=== PATIENT | male | born 1940 | race Caucasian/White ===

== ENCOUNTER 2016-11-18 13:58 | Inpatient (IN) | payer MEDICARE ==
[~2016-11-18] VITALS: Ht 177.8 cm; Wt 90.7 kg
[~2016-11-18 13:58] MED LIST: 0.9% Sodium Chloride 1,000 ML IV SCH; ASPI-973 PO; CLOP75TA28 PO; HYDR25TA4 PO; LOSA50TA37 PO; METO25TA99 PO; Methohexital 10 mg/mL 50 mL Inj IV ONE; POTA10TA7 PO; SIMV10TA4 PO
[2016-11-18 13:59] VITALS: BP 160/85; PULSE 80; RESP 16; O2SAT 97
--- NOTE | 2016-11-18 14:24 | DRSVH ---
PROCEDURE: X-RAY CHEST ONE VIEW, PORTABLE ([id number]) INDICATIONS: chest pain TECHNIQUE: One view of the chest was acquired. COMPARISON: 03/22/2016 FINDINGS: Surgical changes and devices: None. Lungs and pleura: There is bibasilar atelectasis and chronically elevated right hemidiaphragm. No pne umothorax. Superimposition of bowel over the liver. Mediastinum: Mediastinal contours appear normal. Heart size is normal. Bones and chest wall: No suspicious bony lesions. 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 Overlying soft tissues appear unremarkable. IMPRESSION: 1. Bilateral lower lobe atelectasis or scarring. Appearance is unchanged from last exam however possi bility of superimposed pneumonia or embolic disease cannot be excluded. Dictated by: Dk Herrera M.D. on 11/18/2016 at 14:19 Approved by: Dk Herrera M.D. on 11/18/2016 at 14:22
[2016-11-18 14:29] LABS: BASOPHILS % (AUTO) 0.3 % (0-3); EOSINOPHILS % (AUTO) 3.9 % (0-5); Mean Corpuscular Hemoglobin 29.6 pg (27.0-35.0); Mean Corpuscular Volume 87.3 fL (81-100); NEUTROPHILS % (AUTO) 69.2 % (40-74); Platelet Count 174 bil/L (150-400)
[2016-11-18 15:01] LABS: TROPONIN T < 0.010 ug/L (0.0-0.011)
--- NOTE | 2016-11-18 15:08 | ED.REPORT ---
HPI-Chest Pain 40 and Over Date of Service Nov 18, 2016 ED Provider: Elijah Garcia MD Pt is a 76 year old male with a history of cardiac stents (2x), DM, and HTN who presents to the ED complaining of intermmittent left arm pain onset 1 week ago. He c/o associated left shoulder pain. He denies chest pain. The pt reports that he was discharged at 12:00 today from [facility] for similar symptoms. Per pt, his pain started today rating at a 5/10 and he took 2 nitro with relief. His PCP, Dr. Roland, referred him to come to the ED. The pt reports that his symptoms feel similar to when he has previously had cardiac stents. Nursing Notes Stated Complaint: HEART AND LT ARM PAIN Chief Complaint: Chest Pain Nursing Notes Reviewed: Yes (YingYang not reconciled) Allergies: Coded Allergies: Penicillins (Verified Allergy, Severe, HIVES, 11/18/16) Sulfa (Sulfonamide Antibiotics) (Verified Allergy, Mild, Rash,Itching,, ) Scheduled Aspirin (Aspirin) 81 Mg Tablet 81 MG PO DAILY Clopidogrel (Clopidogrel) 75 Mg Tablet 75 MG PO DAILY Hydrochlorothiazide (Hydrochlorothiazide) 25 Mg Tablet 25 MG PO DAILY Losartan Potassium (Losartan Potassium) 50 Mg Tablet 50 MG PO DAILY Metoprolol Succinate ER (Metoprolol Succinate ER) 25 Mg Tab.er.24h 25 MG PO DAILY Potassium Chloride ER (Klor-Con 10) 10 Meq Tablet 10 MEQ PO BID Simvastatin (Simvastatin) 10 Mg Tablet 10 MG PO HS General Time Seen by MD: 15:04 Chief Complaint Other (Left arm pain) Hx Obtained From: Patient Arrived By: Walk-in Sudden in Onset?: No Quality: Painful Severity: Current: Moderate Severity: Maximum: Moderate Recent Healthcare: Recent doctor visit Similar Sx Previous: Yes Past Medical History Past Medical History Notes: Gyn Dr. Roland Past Medical History CPAP History of polycythemia with multiple phlebotomies History of right hemidiaphragm paralysis History of aortic aneurysm 4.47 cm Reports: Diabetes mellitus, Hypertension Past Surgical History Cardiac catheterization angioplasty to obtuse marginal in 2012, status post angioplasty and stenting of the LAD in March 2016 Cardiac stent Bilateral shoulders Left knee Umbilical hernia Left inguinal hernia Smoking History Never Smoker Social History Alcohol Use: Denies alcohol use Drug Use: Denies drug use Other Social History: Good social support Ambulatory Status Independent Review of Systems Musculoskeletal: Reports: Extremity pain Complete sys rev & neg: except as marked. Physical Exam Initial Vital Signs Vital Signs (First) Date Time Temp Pulse Resp B/P Pulse Ox O2 Delivery O2 Flow Rate FiO2 11/18/16 13:59 36.9 80 16 160/85 97 Room Air Initial VS: Reviewed, Vital signs normal (mild HTN) Head / Eyes: Atraumatic, Normocephalic Neck: Supple, Full range of motion Skin: Warm, Dry, No cyanosis Neurologic: Alert, Oriented, Nonfocal Psychiatric: Mood/affect normal, Behavior normal General/Constitutional: Awake, Alert, Cooperative Respiratory / Chest: Atraumatic, Breath sounds NL, Breath sounds = bilat Cardiovascular: Heart rate NL, Regular rhythm, Heart sounds NL Lower Ext Edema: Negative: Bilateral 2+ Abdomen: Atraumatic, Soft, Non-tender Skin: Atraumatic, Color NL, Warm, Dry Interpretation & Diagnostics Lab Results Interpretation Result Diagram: 11/18/16 1421 11/18/16 1421 Test 11/18/16 14:21 11/18/16 14:26 White Blood Count 9.7th/mm3 (3.8-10.1) Red Blood Count 5.61mil/mm3 (4.40-5.80) Hemoglobin 16.6g/dL (13.8-17.2) Hematocrit 49.0% (41.0-50.0) Mean Corpuscular Volume 87.3fL (81-100) Mean Corpuscular Hemoglobin 29.6pg (27.0-35.0) Mean Corpuscular Hemoglobin Concent 33.9% (32.0-37.0) Red Cell Distribution Width 13.8% (12.3-15.4) Platelet Count 174bil/L (150-400) Neutrophils (%) (Auto) 69.2% (40-74) Lymphocytes (%) (Auto) 17.8% (14-46) Monocytes (%) (Auto) 8.0% (4-12) Eosinophils (%) (Auto) 3.9% (0-5) Basophils (%) (Auto) 0.3% (0-3) Sodium Level 140mEq/L (134-144) Potassium Level 4.0mEq/L (3.5-5.2) Chloride Level 102mEq/L (97-108) Carbon Dioxide Level 24mmol/L (18-29) Blood Urea Nitrogen 19mg/dL (8-27) Creatinine 0.77mg/dL (0.76-1.27) Estimat Glomerular Filtration Rate 105mL/min (>59) Glucose Level 171mg/dL (60-99) Calcium Level 9.7mg/dL (8.5-10.1) Magnesium Level 2.0mg/dL (1.6-2.6) Total Bilirubin 0.6mg/dL (0.0-1.2) Aspartate Amino Transf (AST/SGOT) 14U/L (0-50) Alanine Aminotransferase (ALT/SGPT) 16U/L (0-44) Alkaline Phosphatase 87U/L (25-160) Troponin T < 0.010ug/L (0.0-0.011) Total Protein 7.0g/dL (6.4-8.4) Albumin 4.0g/dL (3.4-5.0) Prothrombin Time 10.4sec (8.1-12.5) Prothromb Time International Ratio 0.97ratio Activated Partial Thromboplast Time 26.8sec (22.8-33.0) Lab Results Interpretation: CBC nl CMP normal Troponin #1 negative ECG Interpretation ECG Interpretation: Non-specific t wave abnormalities Pseudo eversion v1v2 Unclear ischemic changes Time: 14:25 Interpreted by: ED physician X-Ray Chest Interpretation Chest Xray Interpretation: IMPRESSION: 1. Bilateral lower lobe atelectasis or scarring. Appearance is unchanged from last exam however possibility of superimposed pneumonia or embolic disease cannot be excluded. Dictated by: Dk Herrera M.D. on 11/18/2016 at 14:19 View: Portable, 1 view Interpretation / Wet Read by: Interpret - Radiologist Re-Eval/Medical Decision Med Decision/Clinical Course This patient was initially seen by the resident, but personally interviewed and evaluated the patient.. This is a 76-year-old male known coronary disease he was just admitted overnight at [facility] and discharge following observation chest pain evaluation. Continued to develop some left arm discomfort, required 2 nitroglycerin resolved. Fairly significant discomfort, reports is identical to what he had when he last required a stent last year. He called his fourth hand Dr. Roland is advised to come the [facility] for further evaluation, initial plan at time of discharge is an outpatient stress test on Tuesday. On arrival to the emergency department his discomfort's down to 1 out of 10 following his nitroglycerin at home, and that resolved with suicidal nitroglycerin here. He has had his aspirin and his Plavix prior to arrival. He had Nitropaste applied. His EKG did not reveal overt signs of ischemia, repeat blood work was normal cleaning first troponin. His presentation is concerning for unstable angina, he was started on a heparin drip. This is discussed with his fourth hand at [facility], and the patient is being admitted-and cardiac catheterization is being planned for the a.m. for further evaluation Source of Hx: Old records Patient Status: Condition improved Re-Evaluation/Progress Note: Patient updated with results and plan Consultation : Referral / Consult Name: Robert Roland MD Consulted With: Cumulative Effects Analyst: Accepts admit Note: Case discussed, agrees with heparin. Agrees to be the primary admitting service, and in anticipates cardiac catheterization in a.m. Differential Diagnosis: Positive: Unstable angina, Negative: Dysrhythmia, Esophageal rupture, Gun shot wound chest, Pneumomediastinum, Pneumonia, Pneumothorax, Pulmonary edema, Pulmonary embolism , Rib fracture Counseled Regarding: Diagnosis, Lab results, Need for admission Discharge & Departure Primary Impression: Unstable angina Disposition: ADMITTED TO HOSPITAL Discharge Condition All VS Reviewed: Yes Condition: Stable Referrals: Ulises Dean MD (PCP) Scribe Attestation Portions of this note were transcribed by Christy Azul. I, Dr. Garcia personally performed the history, physical exam and medical decision-making; I reviewed and confirmed the accuracy of the information in the transcribed note. Signed by: Gabby Agosto, 11/18/16 and 17:50. copies to: Ulises Dean MD, Matthew F MD Nov 18, 2016 15:08 Christy Aiken Nov 18, 2016 15:17
[2016-11-18] MEDS ORDERED: Heparin 25K Unit/500mL 0.45 NS 25,000 UNIT in IV Premix 1 EACH IV ONE (15:20)
[2016-11-18] MEDS ORDERED: Heparin 5,000 Unit/mL Inj IVPUSH ONE (15:20)
[2016-11-18 15:42] VITALS: BP 134/69; PULSE 80; RESP 22
[2016-11-18] MEDS ORDERED: Ondansetron 2 mg/mL 2 mL Inj IVPUSH PRN ×2 (16:10→18:10)
[2016-11-18] MEDS ORDERED: Alum-Mag Hydrox-Simeth 30 mL Suspension PO PRN ×2 (16:10→18:10)
[2016-11-18 17:26] VITALS: BP 140/70; PULSE 70; RESP 16; O2SAT 95
[2016-11-18 17:46] VITALS: PULSE 66
[2016-11-18 17:51] LABS: INR 0.97 ratio
[2016-11-18] MEDS ORDERED: Atropine 1 mg/10 mL (Code) Syringe IVPUSH PRN (18:10)
[2016-11-18] MEDS ORDERED: MeTOProlol XL 50 mg ER24 Tablet PO ONE (18:15)
[2016-11-18] MEDS ORDERED: Nitroglycerin 2% 1 Gm Ointment TOPICAL SCH (18:25)
[2016-11-18] MEDS: 0.9% Sodium Chloride 1,000 ML IV SCH (18:41)
[2016-11-18 18:55] LABS: Creatine Kinase 140 U/L (21-232)
--- NOTE | 2016-11-18 19:38 | HP ---
[address] [address] HISTORY AND PHYSICAL PATIENT: COMFORT CORDOVA V : 1940 MR#: [id number] ADMIT: 11/18/2016 JOB ID: [id number] REASON FOR THE ADMISSION: Acute coronary syndrome (unstable angina). HISTORY OF PRESENT ILLNESS: The patient is a 76-year-old gentleman with a known history of coronary artery disease status post angioplasty to obtuse marginal and mid LAD in 2013, 2012, and 2015, and history of hypertension, hyperlipidemia, obstructive sleep apnea, aortic aneurysm, history of statin intolerance, polycythemia, and was admitted with the symptoms of chest pains yesterday at [facility]. The patient had intermittent episodes of chest pressure and pain radiating to the left shoulder and left arm. It was associated with numbness and tingling of the left arm. He did complain of mild shortness of breath in the beginning. His blood pressure was elevated at that time. The patient went to [facility] Emergency Department. Given his known history of coronary artery disease status post angioplasty he was admitted to the hospital to rule out for an acute coronary syndrome. The patient was given nitroglycerin sublingually twice during his 24-hour stay at [facility]. His symptoms abated. No definite EKG changes were recorded per the admitting physician, Dr. Colton Galvan. However, the patient had indeterminate three sets of troponin levels. For unclear reasons the patient was not risk stratified. After the ruling out of an acute coronary syndrome the patient was discharged home. He was asked to follow up in the office for stress testing. The patient called me this morning and said that he would like to be scheduled for stress testing. The patient was scheduled for stress testing for Tuesday morning. In the afternoon the patient had another episode of chest pain which was similar to his symptoms that he experienced yesterday. Given the recurrence of his symptoms I advised him to go to [facility]. He was evaluated in the ER by Dr. Elijah Garcia who appropriately started him on heparin drip. His MARCELL score is more than three. I saw him this evening. He is pain free at this time on heparin drip. The patient reported no symptoms of exertional chest discomfort prior to the admission, although he had experienced numbness and tingling in his left arm in the last few weeks prior to this admission. His coronary risk factors include hypertension, hyperlipidemia, and diabetes recently diagnosed, currently on metformin. PAST MEDICAL HISTORY: Significant for: 1. Coronary artery disease. 2. PCI to obtuse marginal in 2012. PCI to mid LAD in 2016. 3. Type 2 diabetes. 4. Hyperlipidemia. 5. Statin intolerance. 6. Hypertension. 7. History of thoracic aneurysm. 8. History of polycythemia. 9. History of phlebotomies. 10. Dilated ascending aorta measuring 4.6 cm at the level of sinus of Valsalva, last measured at February 25, 2015. REVIEW OF SYSTEMS: Significant for numbness, tingling in the left arm. All 13 systems were reviewed. ALLERGIES: PENICILLIN. SULFA. CURRENT MEDICATIONS: Include aspirin 81 mg daily, Plavix 75 mg daily, simvastatin 10 mg daily, metoprolol succinate 50 mg daily, losartan 50 mg daily, triamcinolone topical cream, metformin 1000 mg twice daily. PHYSICAL EXAMINATION: His blood pressure is 1445/68. He is alert, oriented. Heart rate of 72. Not in any distress. Pupils are normal size, normal reaction. HEENT: There is no elevated JVD. He does have a carotid bruit on the right side. Chest wall is nontender. There is no chest wall tenderness. Chest expansion is symmetrical. There is no wheezing, rales, or crackles heard. S1, S2 is normal. No musculoskeletal restriction or pain elicited in the left shoulder and right shoulders. No tender spots noted in the spine. Abdomen is soft, benign, and nontender. There is no hepatosplenomegaly. Bowel sounds are present. There is no abdominal bruit. Lower extremities: No pedal edema, cyanosis, or clubbing. He does have mild facial paresis on the right side. ASSESSMENT: 1. Acute coronary syndrome-unstable angina. This is a 76-year-old delightful gentleman with known history of coronary artery disease status post drug-eluting stent to mid left anterior descending and obtuse marginal branch in 2015 and 2012, respectively. Comes in with symptoms of stuttering angina with increasing frequency and prolonged episodes responsive to nitroglycerin. Findings consistent with unstable angina with borderline elevation of troponin levels. The patient is responsive to nitroglycerin and had two nitroglycerins in the emergency department and prior to coming to the hospital. Given that his MARCELL score is three or more, the patient is to be started on aspirin and Plavix, as well as heparin drip. Nitropaste every 6 hours for pain relief. I discussed the options including stress testing and coronary angiography. He wishes to proceed with right coronary angiography. Given his borderline troponin levels and recurrent chest pains responsive to nitroglycerin, I will proceed with an invasive strategy and therefore we will schedule him for coronary angiography for tomorrow morning. The patient was explained the risks, benefits, and alternatives of the procedure. Informed signed consent was obtained and placed in the chart. 2. History of ascending thoracic aneurysm. No recent echocardiogram has been done. Last measurement was 4.38 cm at the sinus of Valsalva level. I would like to repeat that with an echocardiogram at this time. 3. Hypertension. He had an elevated blood pressure in the emergency department, however his blood pressure is adequately controlled here on the floor at 145. The patient is advised to continue with medications. 4. Type 2 diabetes. The patient is on metformin 1000 mg twice daily. I have asked him to hold metformin prior to his cardiac catheterization procedure. 5. Hyperlipidemia. The patient is on simvastatin. No recent lipid panel is available. RECOMMENDATIONS: Admit to the hospital PCU tele. Stat EKG. Routine labs including troponin. Echocardiogram. Start heparin drip. Nitropaste every 6 hours. Resume all home medications except metformin. Consent obtained and placed in the chart. Total time spent in admitting and coordinating his care is more than 70 minutes.
[2016-11-18 20:06] LABS: APPEARANCE,URINE CLEAR (CLEAR,HAZY); COLOR,URINE STRAW (YELLOW); OCCULT BLOOD,URINE TRACE (NEGATIVE); UROBILINOGEN,URINE NORMAL (NORMAL)
[2016-11-18] MEDS: Polyethylene Glycol (PEG) 17 Gm Powder PO PRN (21:19)
[2016-11-18] MEDS: Senna-Docusate 8.6-50 mg Tablet PO PRN (21:19)
[2016-11-18 21:21] VITALS: BP 140/79; PULSE 80; RESP 18; O2SAT 93
[2016-11-19] VITALS (18 sets, daily range): BP systolic 136–195; BP diastolic 65–94; PULSE 52–80; RESP 15–23; O2SAT 92–97
[2016-11-19] MEDS ORDERED: Sodium Chloride LOK Flush 10 mL Syringe IVFLUSH SCH (00:30)
[2016-11-19] MEDS: Sodium Chloride LOK Flush 10 mL Syringe IVFLUSH SCH ×3 (00:30→16:31)
[2016-11-19] MEDS ORDERED: Heparin 5,000 Unit/mL Inj IVPUSH PRN (00:45)
[2016-11-19] MEDS ORDERED: Heparin 25K Unit/500mL 0.45 NS 25,000 UNIT in IV Premix 1 EACH IV SCH (00:45)
[2016-11-19 00:50] LABS: Creatine Kinase 132 U/L (21-232)
[2016-11-19 05:44] LABS: BASOPHILS % (AUTO) 0.4 % (0-3); EOSINOPHILS % (AUTO) 4.6 % (0-5); MONOCYTES % (AUTO) 8.9 % (4-12); Mean Corpuscular Hemoglobin 29.1 pg (27.0-35.0); Mean Corpuscular Volume 87.7 fL (81-100); NEUTROPHILS % (AUTO) 65.5 % (40-74); Platelet Count 156 bil/L (150-400)
[2016-11-19] MEDS ORDERED: Methohexital 10 mg/mL 50 mL Inj IV ONE (06:00)
[2016-11-19] MEDS ORDERED: 0.9% Sodium Chloride 1,000 ML IV SCH (06:00)
[2016-11-19] MEDS ORDERED: 0.9% Sodium Chloride 1,000 ML IV ONE (06:00)
[2016-11-19] MEDS: 0.9% Sodium Chloride 1,000 ML IV SCH (06:38)
[2016-11-19] MEDS ORDERED: METF-496 PO (12:07)
[2016-11-19] MEDS ORDERED: Heparin 10,000 Unit/1,000 mL NS Premix IV ONE ×2 (12:33→13:00)
[2016-11-19] MEDS ORDERED: Heparin 1,000 Units/500 mL NS Premix IV ONE (12:33)
[2016-11-19] MEDS ORDERED: Nitroglycerin 50,000 mcg/250 mL D5W Premix IV ONE (12:33)
[2016-11-19] MEDS ORDERED: fentaNYL-PF 50 mCg/mL 2 mL Inj ONE (12:37)
[2016-11-19] MEDS ORDERED: Heparin 1,000 Unit/mL 10 mL Inj ONE (12:48)
--- NOTE | 2016-11-19 14:11 | DI95 ---
[address] [address] INTERVENTIONAL CARDIAC CATHETERIZATION PATIENT: COMFORT CORDOVA V : 1940 MR#: [id number] ADMIT: 11/18/2016 JOB ID: [id number] DATE: 11/19/2016 PROCEDURE: Percutaneous intervention on the proximal to mid LAD. INDICATIONS: Non STEMI. PROCEDURAL DETAILS: The reader is referred to the procedure log for complete details. Briefly, it was done via a 6-Belgian system using a Voda 4 guide. A Run-through wire was used to cross this lesion and it was pre-dilated and then stented with a 4.0 x 23 mm Xience drug-coated stent. Final angiographic results were excellent with no compromise of the bifurcating septal that arose in this region. The patient is advised to stay on dual antiplatelet therapy for at least six months post procedure. Further follow up care per full discussion of Dr. Roland.
[2016-11-19] MEDS ORDERED: 0.9% Sodium Chloride 250 ML IV PRN (14:45)
[2016-11-19] MEDS ORDERED: Atropine 1 mg/10 mL (Code) Syringe IVPUSH PRN (14:45)
[2016-11-19] MEDS ORDERED: 0.9% Sodium Chloride 1,000 ML IV PRN (14:45)
[2016-11-19] MEDS ORDERED: Ondansetron 2 mg/mL 2 mL Inj IVPUSH PRN (14:45)
[2016-11-19] MEDS: Polyethylene Glycol (PEG) 17 Gm Powder PO PRN (16:31)
[2016-11-19] MEDS: Senna-Docusate 8.6-50 mg Tablet PO PRN (16:31)
--- NOTE | 2016-11-19 17:12 | DRSVH ---
[facility] [address] [place] [address] Echocardiogram Report Name: COMFORT CORDOVA VStudy Date : 11/19/2016 Height: 70 in Hospital Exam Location: [facility] Weight: 207 lb Gender: Male BSA: 2.1 m2 : 1940 Age: 76 yrs BP: 144/76 mmHg Reason For Study: Chest pain Ordering Physician: Performed By: Zac Jerez Interpretation Summary Normal sinus rhythm. 1. Normal LV size and function. The estimated ejeciton fraction is 60%. No wall motion abnormalities are noted. 2. Mild left atrial enlargement. Intact interatrial septum. 3. Age appropriate sclero degenerative valve changes. Mild mitral regurgitation. 4. Mild aortic root dilatation. 5. No significant interval change. Apical hypokinesis seen in the previous study is resolved now. Procedure: A two-dimensional transthoracic echocardiogram with color flow and Doppler was performed. The study quality was technically adequate. The patient was in sinus bradycardia with heart rates between 51-56 bpm during the exam. Left Ventricle: The left ventricle is normal in size. Left ventricular wall thickness is mildly increased. The ejection fraction is estimated to be 60- 65%. There are no focal wall motion abnormalities. Right Ventricle: The right ventricle grossly appears normal in size with probable normal systolic function. Atria: The left atrium is mildly dilated. Right atrial size is normal. The interatrial septum is intact with no evidence for an atrial septal defect. Mitral Valve: The mitral valve is normal. There is mild mitral regurgitation. Aortic Valve: The aortic valve is normal in structure and function. There is trace aortic regurgitation. Tricuspid Valve: The tricuspid valve is normal. There is a trace or physiologic amount of tricuspid regurgitation. Pulmonary artery pressures cannot be estimated because of the lack of a measurable TR jet velocity. Pulmonic Valve: The pulmonic valve leaflets are thin and pliable; valve motion is normal. There is a trace or physiologic amount of pulmonic regurgitation. Great Vessels: The aortic Sinus(es) of Valsalva are borderline dilated. The ascending aorta is mildly enlarged. The pulmonary artery is normal size. The inferior vena cava was not well visualized. Pericardium/ Pleura There is no pericardial effusion. There is no pleural effusion. MMode/2D Measurements & Calculations LVIDd: 5.4 cm RA long axis LVOT diam: 2.3 cm LVIDs: 3.0 cm LA A2 area: 21.7 cm AoV Opening FS: 44.0 % LA A4 area: 20.8 cm RA area IVSd: 1.2 cm LA length (vol) Ao root diam LVPWd: 1.2 cm : 14.6 cm LA vol: 72.8 ml RA vol asc Aorta Diam LA vol index : 44.3 ml RA Ao Arch Diam (Prox : 34.4 ml/m2 : 20.9 mm2 Trans): 3.1 cm LV juárez. diameter/BSA LV sys. diameter/BSA RVD1 (basal) TAPSE: 2.8 cm (cm/m^2): 2.5 (cm/m^2): 1.4 Doppler Measurements & Calculations Ao V2 max: 131.8 cm/secMV E max sunny MV E/A: 0.81 PA V2 max Ao max P.0 mmHg : 69.5 cm/sec Med Peak E' Sunny : 80.6 cm/sec Ao mean P.9 mmHg MV A max sunny PA mean PG LVOT Max Sunny : 85.5 cm/sec E/E' med: 15.4 : 1.6 mmHg : 95.7 cm/sec Lat Peak E' Sunny MARIO(I,D): 3.1 cm E/E' lat: 11.4 sev ratio: 0.72 E/e' average MV dec time: 0.21 sec Ao V2 mean LV V1 max PG PA V2 mean : 95.0 cm/sec : 61.5 cm/sec Ao V2 VTI: 30.1 cmLV V1 VTI: 21.8 cm PA pr(Accel) : 33.8 mmHg MARIO(V,D): 3.1 cm2 MARIO indexed to BSA (cm^2/m^2): 1.5 Electronically signed by: Dr. Robert Roland on Reading Physician:11/19/2016 05:11 PM
--- NOTE | 2016-11-19 18:28 | CS94 ---
[address] [address] DIAGNOSTIC CARDIAC CATHETERIZATION PATIENT: COMFORT CORDOVA V : 1940 MR#: [id number] ADMIT: 11/18/2016 JOB ID: [id number] SERVICE DATE: 11/19/2016 PROCEDURE: 1. Retrograde left heart catheterization. 2. Selective left and right coronary angiography. 3. Left ventricular hemodynamics. CLINICAL HISTORY: Patient is a 76-year-old delightful gentleman with known history of coronary artery disease, status post angioplasty to mid LAD as well as obtuse marginal branch. CONSENT: The patient was explained the risks, benefits, alternatives of the procedure. Informed signed consent was obtained and placed in the chart. DESCRIPTION OF PROCEDURE: The patient was brought to the [facility] and placed on the cath table. Both groins were prepped and draped in the usual sterile manner. Lidocaine 1% was infiltrated in the right groin area to achieve topical anesthesia. Using a modified Seldinger technique, a 6-Swiss arterial sheath was placed in the right femoral artery without any difficulty. An FL4 catheter was used to engage the left main coronary artery. Due to the dilated aortic root, I could not place the catheter properly. XL5 catheter was used to engage the left main coronary artery. Multiple views of the left coronary artery were obtained in multiple projections. Subsequently, FR4 catheter was used to engage the right coronary artery. Multiple views of right coronary artery were obtained in multiple projections. A pigtail catheter was advanced over the guidewire and placed in the left ventricle. The left ventricular hemodynamics was obtained. No left ventricular cineangiography was performed. There was no left ventricular to aortic gradient noted. Please see the hemodynamics that report. The total fluoro time was 6.3 minutes. Total contrast used 125 cc. FINDINGS: The left main coronary artery is mildly diffusely diseased and bifurcates into left anterior descending artery and left circumflex coronary artery. Left anterior descending artery is mildly diffusely diseased in the proximal segment followed by discrete 90% stenosis. At the site of stenosis, there is a bifurcating septal roll tester noted. It is followed by a widely patent stent that was deployed in 2016. The distal LAD demonstrates no significant disease. The diagonal branches demonstrate mild diffuse disease but no hemodynamically significant stenosis. The left circumflex coronary artery is heavily diffusely diseased with segments of ectasia and aneurysm. No high-grade stenosis noted. Obtuse marginal branches arising from the left circumflex demonstrates segments of ectasia but no high-grade stenosis. A tubular stenosis was noted again of 30% to 40% in the second OM branch. The right coronary artery again demonstrates diffuse calcification with segments of ectasia and aneurysm. The proximal RCA has 50% to 60% stenosis. The mid RCA demonstrates two tandem lesions of 40% to 50% stenosis. The posterolateral branch and the PDA branches demonstrates diffuse disease but no aneurysmal dilation noted. IMPRESSION: 1. Severe three-vessel coronary artery disease. 2. High-grade stenosis in the proximal left anterior descending. 3. High-grade 90% stenosis in the proximal left anterior descending. Complex lesion given septal roll tester originating from that segment. 4. Widely patent stent in the left circumflex. 5. Diffuse disease noted in the right coronary artery. Given the finding of severe proximal left anterior descending disease, the care of the patient was transferred over to Dr. Nash for an urgent coronary angioplasty. cc: [facility], [address] [place], [address]
[2016-11-20 00:44] VITALS: BP 180/99; PULSE 67; RESP 16; O2SAT 94
[2016-11-20] MEDS: Sodium Chloride LOK Flush 10 mL Syringe IVFLUSH SCH ×2 (00:49→08:36)
[2016-11-20 05:21] VITALS: BP 162/87; PULSE 72; RESP 16; O2SAT 95
[2016-11-20 06:51] VITALS: PULSE 67
[2016-11-20 08:00] VITALS: PULSE 76
[2016-11-20 08:27] VITALS: BP 138/79; PULSE 81; RESP 16; O2SAT 97
--- NOTE | 2016-11-20 09:30 | PCM.DIMED ---
Discharge Instructions Date of Service Nov 20, 2016 Dates of Hospitalization Nov 18, 2016 at 16:34 Discharge Diagnosis Discharge Diagnosis Coronary Artery Disease Diet Discharge Diet: Heart Healthy, Diabetic Activity Discharge Activity: Limited until seen by PCP Call your provider Call your provider for: Fever or Chills, Shortness of breath, Bleeding, Chest pain, Weakness (unilateral), Other (Signs of infection in the area of the groin where the cateheter was inserted. Take showers. Do not take baths or submerge the wound.) Patient Instructions Follow-up in: 1 week Mid-level Provider (F9): Mian Reed PA-C, William W PA-C Nov 20, 2016 09:30
[2016-11-20] MEDS: Senna-Docusate 8.6-50 mg Tablet PO PRN (10:21)
[2016-11-20] MEDS: Polyethylene Glycol (PEG) 17 Gm Powder PO PRN (10:21)
--- NOTE | 2016-11-22 07:58 | PCM.DICHF ---
CHF Discharge Instructions Dates of Hospitalization Date of Hospital Admission Nov 18, 2016 at 16:34 Providers Admitting Physician: Robert Roland MD Primary Care Physician: Ulises Dean MD Attending Physician: Robert Roland MD Diagnosis at Time of Discharge Diagnosis at time of discharge Coronary Artery Disease Problems: Labs Ejection Fraction Laboratory Tests Test Range/Units 11/18/16 14:21 11/18/16 23:45 11/19/16 05:00 11/20/16 05:00 Hemoglobin A1c 4.8-5.6 % 6.5 Magnesium Level 1.6-2.6 mg/dL 2.0 Total Bilirubin 0.0-1.2 mg/dL 0.6 Aspartate Amino Transf (AST/SGOT) 0-50 U/L 14 Alanine Aminotransferase (ALT/SGPT) 0-44 U/L 16 Alkaline Phosphatase 25-160 U/L 87 Troponin T 0.0-0.011 ug/L < 0.010 Total Protein 6.4-8.4 g/dL 7.0 Albumin 3.4-5.0 g/dL 4.0 Thyroid Stimulating Hormone (TSH) 0.450-4.500 uIU/mL 1.170 Total Creatine Kinase 21-232 U/L 132 Creatine Kinase MB 0.0-10.4 ng/mL 3.8 Creatine Kinase MB % 0.0-5.0 % Triglycerides Level 0-149 mg/dL 81 Cholesterol Level 100-199 mg/dL 101 LDL Cholesterol, Calculated 0-99 mg/dL 49.800 VLDL Cholesterol mg/dL 16.200 HDL Cholesterol >39 mg/dL 35 Cholesterol/HDL Ratio 0.0-4.4 2.89 Sodium Level 134-144 mEq/L 142 Potassium Level 3.5-5.2 mEq/L 4.3 Chloride Level 97-108 mEq/L 106 Carbon Dioxide Level 18-29 mmol/L 21 Blood Urea Nitrogen 8-27 mg/dL 13 Creatinine 0.76-1.27 mg/dL 0.76 Estimat Glomerular Filtration Rate >59 mL/min 106 Glucose Level 60-99 mg/dL 137 Calcium Level 8.5-10.1 mg/dL 9.7 Discharge Medications Other Medication Instructions You have received instructions on the medications your physician has prescribed at discharge. A list of these medications has been provided to you. Keep this and a list of all current medications with you. Keep the dates when you received the Flu and Pneumococcal (Pneumonia) Vaccines. Last known date of receiving Flu Vaccine 2015 Last known date of receiving Pneumococcal (Pneumonia) Vaccine 07/07/12 Diet Diet Instructions CHF Low Salt diet ( 2 grams or less sodium/day) Choose foods and drinks with low or no salt. Remove salt shaker from the table. Read Nutritional Facts labels. Weight Monitoring 1. Weigh yourself every day at the same time and write it down. 2. Take your weight log to your doctor visits. 3. Call your doctor if you gain 3-5 pounds over 2-3 days. 4. Your weight today is 199.96 lbs. Additional Instructions Smoking--Tobacco Use If you smoke, you are strongly encouraged to stop. If you have recently quit smoking, CONGRATULATIONS. For further information to stop smoking or to remain smoke-free, Report or call your Doctor REPORT TO YOUR DOCTOR OR SEEK MEDICAL ATTENTION: *Shortness of breath or have more difficulty breathing. *Swelling of your feet, ankles, hands or abdomen. *Feeling tired with normal activity or experiencing dizziness or fainting. *Trouble sleeping or waking up feeling short of breath or coughing. *Chest pain or pressure. *Weight gain of 3-5 pounds over 2-3 days. *Inability to take medications or follow treatment plan Heart Attach warning signs HEART ATTACK WARNING SIGNS * Chest discomfort. *Discomfort or pain in one or both arms, back, neck, jaw or stomach. *Shortness of breath. *Breaking out in a cold sweat, nausea, or lightheadedness. If you're having heart attack warning signs: CALL . DON'T WAIT MORE THAN A FEW MINUTES - 5 MINUTES AT MOST - TO CALL . Mian Reed PA-C Nov 22, 2016 07:58
--- NOTE | 2016-11-22 10:24 | DIS ---
[address] [address] DISCHARGE SUMMARY PATIENT: COMFORT CORDOVA V : 1940 MR#: [id number] ADMIT: 11/18/2016 JOB ID: [id number] DIS: 11/20/2016 ADMISSION DATE: 11/18/2016 DISCHARGE DATE: 11/20/2016 DISCHARGE DIAGNOSIS: Coronary artery disease. PROCEDURES: 1. Left heart catheterization. 2. Implantation of a drug-eluting stent in the proximal to mid left anterior descending artery. 3. Echocardiogram. BRIEF HISTORY: The patient is a 76-year-old gentleman with a known history of coronary artery disease status post angioplasty to the obtuse marginal and the mid left anterior descending arteries in 2012, 2013, and 2015. He also has a history of hypertension, hyperlipidemia, obstructive sleep apnea, aortic aneurysm, statin intolerance, and polycythemia. The patient was admitted to [facility] after showing up in the emergency department there for chest pain. Given his known history of coronary artery disease status post angioplasty. He was admitted to the hospital to rule out for acute coronary syndrome. The patient was given nitroglycerin sublingually twice during the 24-hour stay at [facility]. His symptoms abated. No definite EKG changes were reported per the admitting physician Dr. Colton charles. However, the patient did have elevated troponin levels. For unclear reasons the patient was not risk stratified. After ruling out of an acute coronary syndrome the patient was discharged home. In the afternoon of November 18, 2016 he had another episode of chest pain which was similar to his symptoms that he experienced the day before. Given the recurrence of his symptoms Dr. Roland advised that he go to [facility]. He was evaluated in the ER and appropriately started on heparin drip. His MARCELL score was more than 3, and he was admitted to the hospital. HOSPITAL COURSE: The patient was admitted to the floor and the above-mentioned procedures were carried out. There were no complications. A left heart catheterization revealed the followin. Severe three-vessel coronary artery disease. 2. High-grade stenosis of the proximal left anterior descending artery. 3. Widely patent stent in the left circumflex artery. 4. Diffuse disease was noted in the right coronary artery. Given the findings of severe left anterior descending disease Dr. Vaderah was called in for an urgent coronary angioplasty. He implanted a drug-eluting stent in the proximal to mid left anterior descending artery. After which the patient was admitted to the floor for observation where he did well. At discharge the catheter entry site at the right groin was clean, dry, and intact without evidence of infection and vitals were stable. DISCHARGE MEDICATIONS: 1. Aspirin 81 mg daily. 2. Clopidogrel 75 mg daily. 3. Losartan potassium 50 mg twice a day. 4. Metformin 1000 mg twice a day. 5. Simvastatin 10 mg daily. DISCHARGE INSTRUCTIONS: The patient was discharged to his home and placed under the care of his family and friends and given the following instructions: 1. Eat a heart healthy, diabetic friendly diet. 2. Limit activity until still seen in our office at [facility] next week. 3. Call the office here at [facility] if he experiences fever, chills, shortness of breath, bleeding, chest pain, weakness, signs of infection in the area of the groin where the catheter was inserted. Take showers. Do not take baths or submerge the wound. 4. Follow up at [facility] in one week.
== END 2016-11-20 11:00 | disposition home or self-care (01) | DRG 247 ==
LOC: SED 13:58 → OBSVTOIN 16:34 → PCC 16:34
PROVIDERS: ADMIT Internal Medicine Cardiovascular Disease; ATTEND Internal Medicine Cardiovascular Disease
PROC: 027034Z Dilation of Coronary Artery, One Artery with Drug-eluting Intraluminal Device, Percutaneous Approach (ICD-10-PCS; principal; 2016-11-19)
PROC: B2111ZZ Fluoroscopy of Multiple Coronary Arteries using Low Osmolar Contrast (ICD-10-PCS; 2016-11-19)
PROC: 4A023N7 Measurement of Cardiac Sampling and Pressure, Left Heart, Percutaneous Approach (ICD-10-PCS; 2016-11-19)
DX: I25.110 Atherosclerotic heart disease of native coronary artery with unstable angina pectoris (principal); I10 Essential (primary) hypertension; Z95.5 Presence of coronary angioplasty implant and graft; E11.9 Type 2 diabetes mellitus without complications; E78.5 Hyperlipidemia, unspecified; Z79.82 Long term (current) use of aspirin